=== PATIENT | female | born 1980 | race Caucasian/White ===

== ENCOUNTER 2017-01-02 10:34 | Emergency (ER) | payer MEDICAID ==
[~2017-01-02] VITALS: Ht 165.1 cm; Wt 56.7 kg
[2017-01-02 10:42] VITALS: BP 121/76
[2017-01-02 11:25] LABS: Basophils # (auto) 0 uL; Basophils % (auto) 0.3 % (0.0-2.0); Eosinophils # (auto) 0 uL; Eosinophils % (auto) 0.2 % (0.0-7.0); Hematocrit 36.7 % (36.0-46.0); Hemoglobin 12.4 g/dL (12.2-16.2); Lymphocytes # (auto) 2.4 uL; Lymphocytes % (auto) 16.2 % (10.0-50.0); Mean Corpuscular Hgb Conc. 33.7 g/dL (32.0-36.0); Mean Corpuscular Volume 85.9 fL (80.0-100.0); Mean Platelet Volume 6.7 fL (7.4-10.4); Monocytes # (auto) 1.4 uL; Monocytes % (auto) 9.4 % (0.0-12.0); Neutrophils # (auto) 10.8 uL; Neutrophils % (auto) 73.9 % (37.0-80.0); Platelet Count (auto) 598 10^3/uL (140-450); Red Cell Distribution Width 13.7 % (11.6-16.0); White Blood Cell 14.6 10^3/uL (4.4-10.8)
[2017-01-02 11:42] LABS: Urine Bilirubin Negative (Negative); Urine Blood Negative /uL (Negative); Urine Color Yellow (Yellow); Urine Glucose Normal (Normal); Urine Ketone Negative (Negative); Urine Nitrite Negative (Negative); Urine RBC 3 /hpf (0 - 4); Urine Squamous Epithelial Cell FEW /hpf (<5); Urine Urobilinogen Normal (Negative); Urine pH 6.5 (5.0-8.0)
[2017-01-02 11:43] LABS: Albumin 3.4 g/dL (3.4-5.0); BUN/Creatinine Ratio 11.8; Bilirubin, Total 0.5 mg/dL (0.2-1.0); Calcium 8.6 mg/dL (8.5-10.1); Potassium 3.9 mmol/L (3.5-5.1); Total Protein 7.1 g/dL (6.4-8.2)
== END 2017-01-02 12:42 | disposition left against medical advice (07) ==
LOC: ER 10:34
DX: R10.9 Unspecified abdominal pain (principal); R50.9 Fever, unspecified; Z53.21 Procedure and treatment not carried out due to patient leaving prior to being seen by health care provider
CPT/HCPCS: 36415; 80053; 81001; 81025; 85025

== ENCOUNTER 2018-07-14 19:05 | Emergency (ER) | payer MEDICAID ==
[~2018-07-14] VITALS: Ht 165.1 cm; Wt 62.6 kg
[2018-07-14 19:19] VITALS: BP 132/84
== END 2018-07-14 20:50 | disposition home or self-care (01) ==
LOC: ER 19:08
DX: S61.532A Puncture wound without foreign body of left wrist, initial encounter (principal); W26.8XXA Contact with other sharp object(s), not elsewhere classified, initial encounter; Y93.89 Activity, other specified; Y99.8 Other external cause status; Y92.89 Other specified places as the place of occurrence of the external cause

== ENCOUNTER 2020-07-29 21:18 | Emergency (ER) | payer MEDICAID ==
[~2020-07-29] VITALS: Ht 165.1 cm; Wt 63.5 kg
[2020-07-29] MEDS ORDERED: IOHEXOL 300 MG/ML 100ML BOTTLE IJ ONE (21:59)
[2020-07-29 22:12] LABS: Basophils # (auto) 0.1 10 ^3/uL (0-0.2); Eosinophils # (auto) 0.1 10 ^3/uL (0-0.8); Neutrophils # (auto) 6.9 10 ^3/uL (1.6-8.6); White Blood Cell 11.2 10^3/uL (4.4-10.8)
[2020-07-29 22:13] LABS: Basophils % (auto) 0.5 % (0.0-2.0); Hematocrit 41.7 % (36.0-46.0); Hemoglobin 13.7 g/dL (12.2-16.2); Lymphocytes # (auto) 3.2 10 ^3/uL (0.4-5.4); Lymphocytes % (auto) 28.7 % (10.0-50.0); Mean Corpuscular Hemoglobin 28.7 pg (28.0-32.0); Mean Corpuscular Hgb Conc. 32.7 g/dL (32.0-36.0); Mean Corpuscular Volume 87.7 fL (80.0-100.0); Monocytes # (auto) 0.9 10 ^3/uL (0-1.3); Monocytes % (auto) 7.9 % (0.0-12.0); Neutrophils % (auto) 61.9 % (37.0-80.0); Platelet Count (auto) 544 10^3/uL (140-450); Red Blood Cells 4.76 10^6/uL (4.0-5.20); Red Cell Distribution Width 13.2 % (11.8-14.3)
[2020-07-29 22:19] LABS: Urine Bacteria FEW /hpf (None Seen); Urine Blood Negative /uL (Negative); Urine Specific Gravity 1.017 (1.001-1.035); Urine WBC 85 /hpf (0 - 5)
[2020-07-29 22:30] LABS: Alanine Aminotransferase 16 U/L (13-56); Albumin 3.6 g/dL (3.4-5.0); Anion Gap 3 (5-15); Aspartate Aminotransferase 11 U/L (15-37); BUN/Creatinine Ratio 10.2; Blood Urea Nitrogen 10 mg/dL (7-18); Calcium 9.2 mg/dL (8.5-10.1); Carbon Dioxide 28 mmol/L (21-32); Chloride 107 mmol/L (98-107); GFR African American 82 mL/min; GFR Non-African American 68 mL/min; Glucose 85 mg/dL (74-106); Magnesium 2.1 mg/dL (1.6-2.6); Potassium 4.5 mmol/L (3.5-5.1); Sodium 138 mmol/L (136-145)
[2020-07-29 22:35] LABS: Alkaline Phosphatase 84 U/L (45-117); Bilirubin, Total 0.4 mg/dL (0.2-1.0); Total Protein 7.4 g/dL (6.4-8.2)
[2020-07-29 22:56] LABS: INR 0.95 (0.9-1.15); Partial Thromboplastin Time 29.6 sec (23.0-31.2)
[2020-07-30 00:05] VITALS: BP 130/86
[2020-07-30] MEDS ORDERED: ACETAMINOPHEN/CODEINE#3 (300/30mg) TAB PO ONE (01:00)
[2020-07-30] MEDS ORDERED: PANTOPRAZOLE 40 MG/10 ML VIAL INJ IV ONE (01:00)
[2020-07-30] MEDS ORDERED: cefTRIAXone 1GM/50ML D5W 50 ML IV ONE (01:00)
== END 2020-07-30 01:25 | disposition home or self-care (01) ==
LOC: ER 21:19
DX: N39.0 Urinary tract infection, site not specified (principal); K29.70 Gastritis, unspecified, without bleeding; D75.89 Other specified diseases of blood and blood-forming organs
CPT/HCPCS: 36415; 71045; 74177; 80053; 81001; 81025; 83735; 83880; 84443; 84484; 85025; 85610; 85730; 96365; 96375; 99285; C9113; J0696; Q9967

== ENCOUNTER 2021-07-05 18:46 | Emergency (ER) | payer MEDICAID ==
[~2021-07-05] VITALS: Ht 165.1 cm; Wt 106.6 kg
[2021-07-05 18:56] VITALS: BP 131/90
== END 2021-07-05 21:10 | disposition left against medical advice (07) ==
LOC: ER 18:46
DX: M25.521 Pain in right elbow (principal); Z53.21 Procedure and treatment not carried out due to patient leaving prior to being seen by health care provider; W19.XXXA Unspecified fall, initial encounter; Y93.89 Activity, other specified; Y92.89 Other specified places as the place of occurrence of the external cause; Y99.8 Other external cause status

== ENCOUNTER 2025-02-16 09:51 | Emergency (ER) | payer MEDICAID ==
[~2025-02-16] VITALS: Ht 165.1 cm; Wt 63.3 kg
[2025-02-16] MEDS: HYDROcodone-ACET 10/325MG TAB PO ONE (10:37)
[2025-02-16 10:59] VITALS: BP 153/94; PULSE 79; RESP 17; TEMP 98; O2SAT 97
--- NOTE | 2025-02-16 11:07 | DVH ---
XY L FOOT 2 VIEW XRAY, INDICATION: fall TECHNICAL DATA: Frontal, and lateral views were obtained of the left foot. COMPARISON: None FINDINGS: No fracture is identified. Joint spaces are maintained. Alignment is anatomic. The hallux sesamoids a ppear normal. Soft tissues are within normal limits. IMPRESSION: No acute fracture or dislocation of the left foot.
--- NOTE | 2025-02-16 11:21 | ED.PDOC ---
History of Present Illness HPI Comments 44F presents to the ER w/ prior MHx of UTI, Ectopic ;SHx of Left Sided Oophorectomy and the c/c of a fall trauma. Pt reports that she was climbing a ladder when she fell off of the ladder and has a bruising on the bottom of the foot w/ a hematoma. Social Hx of last tobacco use of 4 years ago but denies alcohol and substance use. Denies chills, fever, N/V/D, SOB, CP. No other associated symptoms, modifiers, recent injuries or sick contacts present at this time. 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) Family History Family History: Reviewed,noncontributory to illness, Unknown Social History Smoker: Quit Greater Than 1 Year Alcohol: Denies ETOH Use Drugs: Denies Drug Use Lives In: Home Constitutional: reports: others (Hematoma and bruising); denies: chills, diaphoresis, fatigue, fever, malaise, sweats, weakness EENTM: denies: blurred vision, double vision, ear bleeding, ear discharge, ear drainage, ear pain, ear ringing, eye pain, eye redness, hearing loss, mouth pain , mouth swelling, nasal discharge, nose bleeding, nose congestion, nose pain, photophobia, tearing, throat pain, throat swelling, voice changes, others Respiratory: denies: cough, hemoptysis, orthopnea, SOB at rest, shortness of breath, SOB with excertion, stridor, wheezing, others Cardiovascular: denies: chest pain, dizzy spells, diaphoresis, Dyspnea on exertion, edema, irregular heart beat, left arm pain, lightheadedness, palpitations, PND, syncope, others Gastrointestinal: denies: abdomen distended, abdominal pain, blood streaked bowels, constipated, diarrhea, dysphagia, difficulty swallowing, hematemesis, melena, nausea, poor appetite, poor fluid intake, rectal bleeding, rectal pain, vomiting, others Genitourinary: denies: abnormal vagina bleeding, burning, dyspareunia, dysuria, flank pain, frequency, hematuria, incontinence, pain, , vagina discharge, urgency, others Neurological: denies: dizziness, fainting, headache, left sided numbness, left sided weakness, numbness, paresthesia, pre-existing deficit, right sided numbness, right sided weakness, seizure, speech problems, tingling, tremors, weakness, others Musculoskeletal: denies: back pain, gout, joint pain, joint swelling, muscle pain, muscle stiffness, neck pain, others Integumetry: denies: bruises, change in color, change in hair/nails, dryness, laceration, lesions, lumps, rash, wounds, others Allergic/Immunocompromised: denies: Difficulty Healing, Frequent Infections, Hives, Itching, others Hematologic/Lymphatic: denies: anemia, blood clots, easy bleeding, easy bruising, swollen glands, others Endocrine: denies: excessive hunger, excessive sweating, excessive thirst, excessive urination, flushing, intolerance to cold, intolerance to heat, unexplained weight gain, unexplained weight loss, others Psychiatric: denies: anxiety, bipolar disorder, depression, hopeless, panic disorder, schizophrenia, sleepless, suicidal, others All Other Systems: Reviewed and Negative Physical Exam General Appearance: Moderate Distress, Normal HEENT: Normal ENT Inspection, Pharynx Normal, TMs Normal Neck: Full Range of Motion, Non-Tender, Normal, Normal Inspection Respiratory: Chest Non-Tender, Lungs Clear, No Accessory Muscle Use, No Respiratory Distress, Normal Breath Sounds Cardiovascular: No Edema, No JVD, No Murmur, No Gallop, Normal Peripheral Pulses, Regular Rate/Rhythm Breast Exam: Deferred Gastrointestinal: No Organomegaly, Non Tender, No Pulsatile Mass, Normal Bowel Sounds, Soft Genitalia: Deferred Pelvic: Deferred Rectal: Deferred Extremities: No calf tenderness, Normal capillary refill, Normal inspection, Normal range of motion, Non-tender, No pedal edema Musculoskeletal : Apperance: Normal Neurologic: Alert, 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 Was a procedure done?: No Differential Dx Considerations may include: Bruising Muscle strain X-Ray, Labs, Meds, VS Vital Signs Date Time Temp Pulse Resp B/P (MAP) Pulse Ox O2 Delivery O2 Flow Rate FiO2 02/16/25 10:59 98.0 79 17 153/94 (113) 97 98.0 02/16/25 10:59 79 17 97 Room Air 02/16/25 10:12 98.0 79 17 153/94 (113) 97 98.0 [facility] [address] [address] Ph: [phone] DIAGNOSTIC IMAGING Diagnostic Imaging Report : [id number] Signed PATIENT: SCOTT SWANSON ACCT: [id number] UNIT: [id number] : 1980 LOC: ER ROOM / BED: / AGE / SEX: 44 / F ADM STATUS: REG ER SERVICE 1023 ORDERING PHYSICIAN: ARPITA SAHA MD PROCEDURE(s): LFOT2 - L FOOT 2 VIEW XRAY REASON: fall ORDER NUMBER(s): [id number], ACCESSION NUMBER(s): [id number] XY L FOOT 2 VIEW XRAY, INDICATION: fall TECHNICAL DATA: Frontal, and lateral views were obtained of the left foot. COMPARISON: None FINDINGS: No fracture is identified. Joint spaces are maintained. Alignment is anatomic. The hallux sesamoids appear normal. Soft tissues are within normal limits. IMPRESSION: No acute fracture or dislocation of the left foot. ATED BY: MONROE ARIZMENDI MD DICTATED DATE/TIME: 02/16/251104 SIGNED BY: MONROE ARIZMENDI MD SIGNED DATE/TIME: 02/16/251104 CC: Patient alert. Came in because of injury to the left foot. Vitals stable. Answering questions. On x-ray does not show any fracture. Bruising on examination. Was given prescription of Motrin. Explained to the patient. Was told to follow up with her primary care physician. Was told to come back if there is any. Time of 1ST Reevaluation: 11:00 Reevaluation 1ST: Unchanged Patient Education/Counseling: Diagnosis, Treatment, Prognosis Family Education/Counseling: No Family Present Departure 1 Departure Time of Disposition: 11:53 Impression: Primary Impression: Musculoskeletal pain Disposition: 01 HOME / SELF CARE / HOMELESS Condition: Good e-Prescriptions Ibuprofen Micronized (MOTRIN TABLET) 600 Mg Tb 600 MG PO TID PRN for 5 Days, #15 TAB *Black box warning-NSAIDS can increase risk of KS & hypertension, GI irritation, ulceration, bleed, perferation. Do not use post cardiac surgery. Use short duration/lowest effective dose. Prov: ARPITA SAHA MD 02/16/25 Discharged With: Self Critical Care Note Critical Care Time?: No Stability Stability form required: No I personally scribed for ARPITA SAHA MD ([email or web address]) on 02/16/25 at 11:21. Electronically submitted by Isra Man ([email or web address]). I personally scribed for ARPITA SAHA MD ([email or web address]) on 02/16/25 at 11:22. Electronically submitted by Isra Man ([email or web address]). ARPITA SAHA MD February 16, 2025 11:21
[2025-02-16] MEDS ORDERED: IBU600T PO (11:54)
== END 2025-02-16 13:01 | disposition home or self-care (01) ==
LOC: ER 09:54
DX: S90.32XA Contusion of left foot, initial encounter (principal); Z87.891 Personal history of nicotine dependence; Z90.721 Acquired absence of ovaries, unilateral; W11.XXXA Fall on and from ladder, initial encounter; Y93.39 Activity, other involving climbing, rappelling and jumping off; Y92.89 Other specified places as the place of occurrence of the external cause; Y99.8 Other external cause status
CPT/HCPCS: 73620